=== PATIENT | male | born 2000 | race Caucasian/White ===

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

== ENCOUNTER 2021-02-16 23:05 | Emergency (ER) | payer OTHER ==
[~2021-02-16] VITALS: Ht 180.3 cm; Wt 95.5 kg
[~2021-02-16 23:05] MED LIST: IPRA12.9 IH
[2021-02-17] MEDS ORDERED: MONT10TA80 (00:57)
--- NOTE | 2021-02-17 01:31 | PHYS DOC ---
Past History Past Medical History: No Pertinent History Smoking: Non-smoker Alcohol Use: None Drug Use: None General Adult EDM: Chief Complaint: LACERATION/AVULSION HPI: HPI: " I cut myself at work.. ".. " I was opening a box.." " I work a [employer] over and [place]..." Patient is a 20 year old male who presents with above hx and complaints 1 cm laceration to Rt. lateral palm. Patient distal vascular intact. Tetanus is up-to-date. No history immunosuppression. No history recent travel outside the [place] area. Patient is right-hand dominant. No specific ill contacts. Review of Systems: Review of Systems: Constitutional: Denies fever or chills Eyes: Denies change in visual acuity HENT: Denies nasal congestion or sore throat Respiratory: Denies cough or shortness of breath Cardiovascular: Denies chest pain or edema GI: Denies abdominal pain, nausea, vomiting, bloody stools or diarrhea : Denies dysuria Musculoskeletal: Denies back pain or joint pain Integument: Denies rash. Complains of laceration to right hand Neurologic: Denies headache, focal weakness or sensory changes Endocrine: Denies polyuria or polydipsia Lymphatic: Denies swollen glands Psychiatric: Denies depression or anxiety Family History: Family History: Noncontributory to presentation Current Medications: Current Meds: See nursing for home meds Allergies: Allergies: Allergies Coded Allergies Type Severity Reaction Last Updated Verified No Known Drug Allergies 02/17/21 No Physical Exam: PE: Constitutional: Well developed, well nourished, moderate acute distress, non- toxic appearance. [] HENT: Normocephalic, atraumatic, bilateral external ears normal, oropharynx moist, no oral exudates, nose normal. [] Eyes: PERRLA, EOMI, conjunctiva normal, no discharge. [] Neck: Normal range of motion, no tenderness, supple, no stridor. [] Cardiovascular:Heart rate regular rhythm, no murmur [] Lungs & Thorax: Bilateral breath sounds clear to auscultation [] Abdomen: Bowel sounds normal, soft, no tenderness, no masses, no pulsatile masses. [] Skin: Warm, dry, no erythema, no rash. [] Laceration right hand as per HPI Back: No tenderness, no CVA tenderness. [] Extremities: No tenderness, no cyanosis, no clubbing, ROM intact, no edema. [] Neurologic: Alert and oriented X 3, normal motor function, normal sensory function, no focal deficits noted. [] Psychologic: Affect normal, judgement normal, mood normal. [] Current Patient Data: Vital Signs: Vital Signs Date Time Temp Pulse Resp B/P (MAP) Pulse Ox O2 Delivery O2 Flow Rate FiO2 02/17/21 00:44 97.9 87 20 145/84 (104) 97 Room Air EKG: EKG: [] Radiology/Procedures: Radiology/Procedures: [] Heart Score: C/O Chest Pain: N/A Risk Factors: Risk Factors: DM, Current or recent (<one month) smoker, HTN, HLP, family history of CAD, obesity. Risk Scores: Score 0 - 3: 2.5% MACE over next 6 weeks - Discharge Home Score 4 - 6: 20.3% MACE over next 6 weeks - Admit for Clinical Observation Score 7 - 10: 72.7% MACE over next 6 weeks - Early Invasive Strategies Course & Med Decision Making: Course & Med Decision Making Pertinent Labs and Imaging studies reviewed. (See chart for details) Procedure note-laceration repair-patient washed hands surgical soap and water.. Hand and edge of laceration cleaned with Betadine. Injected laceration with 2% lidocaine. We irrigated hand and range of motion. Closed laceration with 4-0 Prolene x3 simple and one mattress stitch. Application of antibiotic ointment and dressing applied. Patient keep hand clean and dry. Take Tylenol and ibuprofen for pain. Follow-up primary care. Return if any concerns. Sutures to be removed in 10 days. If current dressing comes wet must be removed immediately. Impression: 1. Rt hand laceration 1 cm [] Dragon Disclaimer: Dragon Disclaimer: This electronic medical record was generated, in whole or in part, using a voice recognition dictation system. Departure Departure: Referrals: PCP,NO (PCP) TERRELL MAYS MD February 17, 2021 01:31
[2021-02-17 02:06] VITALS: BP 127/73
== END 2021-02-17 02:20 | disposition home or self-care (01) ==
LOC: ER 23:05
DX: S61.411A Laceration without foreign body of right hand, initial encounter (principal); W26.0XXA Contact with knife, initial encounter; Y93.89 Activity, other specified; Y92.89 Other specified places as the place of occurrence of the external cause; Y99.8 Other external cause status
CPT/HCPCS: 12001; 99282

== ENCOUNTER 2021-06-26 22:04 | Emergency (ER) | payer BC, OTHER ==
[~2021-06-26] VITALS: Ht 180.3 cm; Wt 95.2 kg
[~2021-06-26 22:04] MED LIST changes: +MONT10TA80
[2021-06-26] MEDS: ONDANSETRON ODT 4 MG TAB.RAPDIS PO ONE (22:28)
[2021-06-26] MEDS: IV RINGERS SOLUTION,LACTATED 1,000 ML IV ONE (22:29)
--- NOTE | 2021-06-26 22:35 | PHYS DOC ---
Past History Past Medical History: No Pertinent History Smoking: Non-smoker Alcohol Use: None Drug Use: None General Adult EDM: Chief Complaint: NAUSEA/VOMITING/DIARRHEA HPI: HPI: ".. I got some kind of flu bug.. or something... " Patient is a 20 year old male who presents with above hx of nausea and vomiting x 6 to days. No history of COVID vaccination. No history of travel. No history of ill contact. No centimeters depression. No history of bad food. Patient normally healthy. Review of Systems: Review of Systems: Constitutional: Denies fever or chills Eyes: Denies change in visual acuity HENT: Denies nasal congestion or sore throat Respiratory: Denies cough or shortness of breath Cardiovascular: Denies chest pain or edema GI: Complains of epigastric abdominal pain, nausea, vomiting, x5. Denies any bloody stools or diarrhea : Denies dysuria Musculoskeletal: Denies back pain or joint pain Integument: Denies rash Neurologic: Denies headache, focal weakness or sensory changes Endocrine: Denies polyuria or polydipsia Lymphatic: Denies swollen glands Psychiatric: Denies depression or anxiety Family History: Family History: Noncontributory Current Medications: Current Meds: Current Medications Medications (Trade) Dose Ordered Sig/Deyvi Start Time Stop Time Status Last Admin Dose Admin Lactated Ringer's 1,000 ml @ 1,000 mls/hr 1X ONCE 06/26/21 22:30 06/26/21 23:29 06/26/21 22:29 1,000 MLS/HR Ondansetron HCl (Zofran Odt) 8 mg 1X ONCE 06/26/21 22:30 06/26/21 22:31 DC 06/26/21 22:28 8 MG Allergies: Allergies: Allergies Coded Allergies Type Severity Reaction Last Updated Verified No Known Drug Allergies 02/17/21 No Physical Exam: PE: Constitutional: Well developed, well nourished, moderate acute distress, non- toxic appearance. [] HENT: Normocephalic, atraumatic, bilateral external ears normal, oropharynx dry, no oral exudates, nose normal. [] Eyes: PERRLA, EOMI, conjunctiva normal, no discharge. [] Neck: Normal range of motion, no tenderness, supple, no stridor. [] Cardiovascular:Heart rate regular rhythm, no murmur [] Lungs & Thorax: Bilateral breath sounds clear to auscultation [] Abdomen: Bowel sounds hyperactive, soft, no tenderness, no masses, no pulsatile masses. [] Skin: Warm, dry, no erythema, no rash. [] Back: No tenderness, no CVA tenderness. [] Extremities: No tenderness, no cyanosis, no clubbing, ROM intact, no edema. [] Marily cut on right hand has healed well Neurologic: Alert and oriented X 3, normal motor function, normal sensory function, no focal deficits noted. [] Psychologic: Affect normal, judgement normal, mood normal. [] Current Patient Data: Vital Signs: Vital Signs Date Time Temp Pulse Resp B/P (MAP) Pulse Ox O2 Delivery O2 Flow Rate FiO2 06/26/21 22:14 97.9 100 16 115/68 (84) 100 Room Air EKG: EKG: [] Radiology/Procedures: Radiology/Procedures: [] Heart Score: C/O Chest Pain: N/A Risk Factors: Risk Factors: DM, Current or recent (<one month) smoker, HTN, HLP, family history of CAD, obesity. Risk Scores: Score 0 - 3: 2.5% MACE over next 6 weeks - Discharge Home Score 4 - 6: 20.3% MACE over next 6 weeks - Admit for Clinical Observation Score 7 - 10: 72.7% MACE over next 6 weeks - Early Invasive Strategies Course & Med Decision Making: Course & Med Decision Making Pertinent Labs and Imaging studies reviewed. (See chart for details) Clear fluid diet only for 48 hours. No solids. No milk products. Zofran 8 mg up to 4 times a day for nausea and vomiting. If he develops diarrhea take [id number] Pepto-Bismol. Tylenol and ibuprofen as needed for discomfort. Follow-up primary care. Return if any concerns. Follow up covid results. Self isolate. Impression: 1. Viral gastroenteritis [] Trini Disclaimer: Trini Disclaimer: This electronic medical record was generated, in whole or in part, using a voice recognition dictation system. Departure Departure: Referrals: PCP,NO (PCP) Scripts Ondansetron Hcl (ZOFRAN) 4 Mg Tablet 8 MG PO QIDPRN PRN for nv, #30 TAB Prov: TERRELL MAYS MD 06/26/21 Trini Disclaimer This chart was dictated in whole or in part using Voice Recognition software in a busy, high-work load, and often noisy Emergency Department environment. It may contain unintended and wholly unrecognized errors or omissions. TERRELL MAYS MD Jun 26, 2021 22:35
[2021-06-26] MEDS ORDERED: ONDA4TAB7 PO (22:39)
[2021-06-26] MEDS: FAMOTIDINE 20 MG/2 ML VIAL IVP ONE (23:08)
[2021-06-26] MEDS: KETOROLAC 30 MG/ML VIAL. IVP ONE (23:08)
[2021-06-26] MEDS: ONDANSETRON PF 4 MG/2 ML VIAL. IVP ONE (23:09)
[2021-06-26 23:10] LABS: INFLUENZA A PATIENT NEGATIVE (NEGATIVE); INFLUENZA B PATIENT NEGATIVE (NEGATIVE)
[2021-06-26 23:21] LABS: BASO % 0 % (0-3); EOS % 0 % (0-3); LYMPH # 0.6 x10^3/uL (1.0-4.8); LYMPH % 6 % (24-48); MEAN CORPUSCULAR HEMOGLOBIN 26 pg (25-35); MEAN CORPUSCULAR HGB CONC 33 g/dL (31-37); MEAN CORPUSCULAR VOLUME 79 fL (79-100); MONO % 10 % (0-9); NEUT # 8.4 x10^3uL (1.8-7.7); NEUT % 84 % (31-73); PLATELET COUNT 258 x10^3/uL (140-400); RED CELL DISTRIBUTION WIDTH 14.2 % (11.5-14.5)
[2021-06-26] MEDS: IV RINGERS SOLUTION,LACTATED 1,000 ML IV SCH (23:24)
[2021-06-26 23:29] LABS: GFR 95.3; POTASSIUM 3.7 mmol/L (3.5-5.1)
[2021-06-26 23:33] LABS: BARBITURATES NEG (NEG); BENZODIAZEPINES NEG (NEG); CANNABINOIDS NEG (NEG); COCAINE NEG (NEG); METHADONE NEG (NEG); OPIATES NEG (NEG); PHENCYCLIDINE NEG (NEG)
[2021-06-26 23:36] LABS: AMPHETAMINE/METHAMPHETAMINE NEG (NEG)
[2021-06-26 23:38] LABS: BILIRUBIN,URINE NEG (NEG); CLARITY,URINE CLEAR; COLOR,URINE YELLOW; GLUCOSE,URINE NEG (NEG)
[2021-06-26 23:39] LABS: BACTERIA,URINE FEW /HPF (0-FEW); NITRITE,URINE NEG (NEG); SQUAMOUS EPITHELIAL CELL,UR OCC /LPF
[2021-06-27 00:47] VITALS: BP 118/64
== END 2021-06-27 00:48 | disposition home or self-care (01) ==
LOC: ER 22:04
DX: A08.4 Viral intestinal infection, unspecified (principal); Z20.822 Contact with and (suspected) exposure to COVID-19
CPT/HCPCS: 36415; 80048; 80307; 81001; 82150; 83690; 85025; 87804; 96361; 96374; 96375; 99284; C9803; J1885; J2405; J3490; J7120; Q0162; U0003